=== PATIENT | male | born 1975 | race Hispanic/Latino ===

== ENCOUNTER 2022-07-03 10:37 | Emergency (ER) | payer OTHER ==
[~2022-07-03] VITALS: Ht 180.3 cm; Wt 65.0 kg
[2022-07-03 10:46] VITALS: BP 142/83
[2022-07-03 11:00] VITALS: BP 118/77
[2022-07-03] MEDS ORDERED: ACETAMINOP160 MG/5 M PO (11:06)
[2022-07-03 12:00] VITALS: BP 112/75
[2022-07-03] MEDS ORDERED: FLONASE AL50 MCG/ACT (15:05)
[2022-07-03] MEDS ORDERED: AMOX/K CLAV875 M1 PO (15:05)
[2022-07-03 15:15] VITALS: BP 112/75
== END 2022-07-03 16:32 | DRG 153 ==
LOC: ED 10:37
DX: J32.9 Chronic sinusitis, unspecified (principal); Z85.47 Personal history of malignant neoplasm of testis